=== PATIENT | female | born 1945 | race Two or more races ===

== ENCOUNTER 2021-04-20 16:15 | Emergency (ER) | payer OTHER ==
[~2021-04-20] VITALS: Ht 157.5 cm; Wt 74.8 kg
[2021-04-20 16:45] VITALS: BP 153/94
== END 2021-04-20 18:18 | disposition home or self-care (01) ==
LOC: ER 16:31
DX: R51.9 Headache, unspecified (principal); I10 Essential (primary) hypertension; W01.0XXA Fall on same level from slipping, tripping and stumbling without subsequent striking against object, initial encounter; Y93.89 Activity, other specified; Y92.89 Other specified places as the place of occurrence of the external cause; Y99.8 Other external cause status
CPT/HCPCS: 70450

== ENCOUNTER 2023-11-21 12:39 | Emergency (ER) | payer OTHER, MEDICAID ==
[~2023-11-21] VITALS: Ht 157.5 cm; Wt 72.0 kg
[~2023-11-21 12:39] MED LIST: AZIT-43 PO; AZIT500T66 PO; IBUP-1456 PO
[2023-11-21] MEDS: ACETAMINOPHEN 500 MG TAB PO ONE (13:34)
[2023-11-21] MEDS ORDERED: METH-1182 PO (14:09)
[2023-11-21 14:14] VITALS: BP 150/89; PULSE 86; RESP 18; TEMP 97.3; O2SAT 96
== END 2023-11-21 14:17 | disposition home or self-care (01) ==
LOC: ER 12:39
DX: M77.8 Other enthesopathies, not elsewhere classified (principal); I10 Essential (primary) hypertension; Z88.6 Allergy status to analgesic agent
CPT/HCPCS: 73030